=== PATIENT | female | born 1995 ===

== ENCOUNTER 2021-08-01 20:40 | Emergency (ER) | payer MEDICAID ==
[~2021-08-01] VITALS: Ht 152.4 cm; Wt 79.5 kg
[2021-08-01 21:14] VITALS: BP 148/99
[2021-08-01] MEDS ORDERED: CLIN300C71 PO (22:48)
[2021-08-01] MEDS ORDERED: IBUP-1984 PO (22:48)
[2021-08-01] MEDS ORDERED: clindamycin 150mg capsule PO ONE (22:50)
[2021-08-01] MEDS ORDERED: ketorolac trometh inj. 60 MG/2 ML VIAL IM ONE (22:50)
== END 2021-08-01 23:24 | disposition home or self-care (01) ==
LOC: ER 20:41
DX: K08.89 Other specified disorders of teeth and supporting structures (principal); R51.9 Headache, unspecified; R22.0 Localized swelling, mass and lump, head; K02.9 Dental caries, unspecified; Z79.2 Long term (current) use of antibiotics; Z79.899 Other long term (current) drug therapy; Z88.0 Allergy status to penicillin
CPT/HCPCS: 96372; 99283; J1885